=== PATIENT | female | born 1980 | race Caucasian/White ===

== ENCOUNTER 2018-01-12 20:23 | Emergency (ER) | payer OTHER ==
[~2018-01-12] VITALS: Ht 167.6 cm; Wt 72.6 kg
== END 2018-01-13 14:15 | disposition home or self-care (01) ==
LOC: ER 20:23
DX: R10.13 Epigastric pain (principal); R10.11 Right upper quadrant pain; K58.8 Other irritable bowel syndrome

== ENCOUNTER 2019-05-21 13:34 | Outpatient (CLI) | payer OTHER | END 2019-05-21 13:40 | disposition home or self-care (01) | LOC: LAB 13:34 | DX: K40.91 Unilateral inguinal hernia, without obstruction or gangrene, recurrent (principal) ==

== ENCOUNTER → 2019-05-31 | Outpatient (CLI) | payer OTHER | END | disposition home or self-care (01) | LOC: TOM 08:30 | DX: K40.91 Unilateral inguinal hernia, without obstruction or gangrene, recurrent (principal) ==

== ENCOUNTER 2020-03-06 12:23 | Outpatient (CLI) | payer OTHER | END 2020-03-06 12:33 | disposition home or self-care (01) | LOC: SONOGRAMA 12:23 | PROVIDERS: ATTEND Specialist | DX: N92.1 Excessive and frequent menstruation with irregular cycle (principal) ==

== ENCOUNTER 2023-07-23 17:36 | Emergency (ER) | payer OTHER ==
[~2023-07-23] VITALS: Ht 167.6 cm; Wt 77.6 kg
[2023-07-23] MEDS ORDERED: OZEMPIC1 MG/0.71 SQ (17:48)
[2023-07-23 19:27] LABS: HEMATOCRIT 39.2 % (36.0-45.00); HEMOGLOBIN 12.9 g/dL (12.0-15.00); MEAN CELL VOLUME 93.3 fL (80.00-100.00); MEAN CORPUSCULAR HEMOGLOBIN 30.7 pg (27.00-32.0); MEAN CORPUSCULAR HGB CONC 32.9 g/dl (32.0-36.0); PLATELET COUNT 352 K/uL (150-450); RED CELL DISTRIBUTION WIDTH 13.6 % (11.5-14.5)
[2023-07-23 19:32] LABS: CALCIUM 9.1 mg/dL (8.5-10.1); CREATININE SERUM 0.74 mg/dL (0.55-1.02); GFR 86.06; POTASSIUM 3.74 mEq/L (3.5-5.1)
[2023-07-23 19:53] LABS: PH,URINE 5.5 (5.0-8.0); URINE APPEARANCE Cloudy; URINE BILIRRUBIN Negative (NEGATIVE); URINE BLOOD Moderate; URINE COLOR Yellow; URINE GLUCOSE Negative (NEGATIVE); URINE LEUKOCYTE Negative; URINE NITRATE Positive; URINE PROTEIN Negative (NEGATIVE)
[2023-07-23 19:56] LABS: URINE RBC 69.5 uL (0.0-20.8); URINE WBC 16.8 uL (0.0-23.2)
[2023-07-23 20:12] LABS: URINE BACTERIA > 9821.5 uL (0.0-1933)
== END 2023-07-23 23:49 | disposition home or self-care (01) ==
LOC: ER 17:36
PROVIDERS: General Practice
DX: M54.9 Dorsalgia, unspecified (principal); N39.0 Urinary tract infection, site not specified; B96.29 Other Escherichia coli [E. coli] as the cause of diseases classified elsewhere